=== PATIENT | female | born 2005 | race Caucasian/White ===

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

== ENCOUNTER 2024-11-30 00:27 | Emergency (ER) | payer OTHER ==
[~2024-11-30] VITALS: Ht 167.6 cm; Wt 96.0 kg
[2024-11-30 00:38] VITALS: O2SAT 99
[2024-11-30] MEDS: ACETAMINOPHEN 325MG TABLET PO ONE (02:38)
[2024-11-30 03:09] LABS: CLARITY URINE CLOUDY (CLEAR); COLOR URINE YELLOW (YELLOW); GLUCOSE URINE NEGATIVE (NEGATIVE); KETONES URINE NEGATIVE (NEGATIVE); LEUKOCYTE ESTERASE URINE 3+ (NEGATIVE); NITRITE URINE POSITIVE (NEGATIVE); OCCULT BLOOD URINE 1+ (NEGATIVE); PH URINE 7.0 (4.5-8.0); PROTEIN URINE 2+ (NEGATIVE); SPECIFIC GRAVITY URINE 1.013 (1.005-1.030); UROBILINOGEN URINE 1.0 E.U./dL (0.2-1.0)
[2024-11-30] MEDS ORDERED: CEFP100T8 MT (03:39)
[2024-11-30] MEDS ORDERED: CEFP200T13 MT (03:41)
[2024-11-30] MEDS ORDERED: ACET-2708 MT (03:41)
[2024-11-30 03:51] LABS: BACTERIA URINE 2+; SQUAMOUS EPITHELIAL CELL URINE NONE SEEN /lpf (RARE/1+); WBC URINE TNTC /hpf (0-2)
[2024-11-30 04:49] VITALS: BP 105/55; PULSE 72; RESP 16; TEMP 36.7; O2SAT 99
== END 2024-11-30 04:53 | disposition home or self-care (01) ==
LOC: ER 00:27
DX: N12 Tubulo-interstitial nephritis, not specified as acute or chronic (principal); Z88.6 Allergy status to analgesic agent; Z79.899 Other long term (current) drug therapy
CPT/HCPCS: 81003; 81025; 87077; 87186; 99283